=== PATIENT | male | born 2000 | race Caucasian/White ===

== ENCOUNTER 2024-02-01 20:12 | Observation (INO) ==
--- NOTE | 2024-02-01 21:05 | Emergency Department Note ---
Impression & Plan Fever, Asplenia after surgical procedure, COVID-19 ED Provider Note NAME: NATHAN CAAL AGE: 23 SEX: M : 2000 ARRIVES VIA: Walk-In INFORMANT: Patient, ED PROVIDER(S): Chuck Davila DO CHIEF COMPLAINT: Fever HPI: The patient is a 23-year-old male who is a college student who presented to the emergency department for an evaluation of fever. He noticed a low-grade fever earlier today. He came the emergency department because of the symptoms. He is also noticed a headache as well as sore throat. He noticed mild rhinorrhea and a dry cough. He has had some loose stools over the last few days. He denies having any abdominal pain. He denies having any productive cough. He denies having any rashes. He denies have any exposure in the [place] or any recent tick bites. ROS: See above HPI for pertinent positives & negatives. A total of 10 systems reviewed and were otherwise negative. PAST MEDICAL HISTORY: See Below PAST SURGICAL HISTORY: See Below FAMILY HISTORY: See Below SOCIAL HISTORY: See Below HOME MEDICATIONS: See Below ALLERGIES: See Below VITALS: See Below PHYSICAL EXAMINATION: GENERAL: Patient is awake alert in no acute distress patient is resting comfortably and showing no signs of anxiety EYES: The conjunctivae are clear. The pupils are round and reactive. EARS, NOSE, MOUTH AND THROAT: The nose is without any evidence of any deformity. Mucous membranes are moist. There was erythema noted in the posterior oropharynx. There was no significant exudate. NECK: The neck is nontender and supple. RESPIRATORY: Normal respiratory effort is noted there is no evidence of wheezing rhonchi or rales CARDIOVASCULAR: Regular rate and rhythm noted there no murmurs rubs or gallops normal S1 normal S2. GASTROINTESTINAL: The abdomen is soft. Abdomen is nontender. MUSCULOSKELETAL/EXTREMITIES: There is no evidence of gross deformity full range of motion is noted in the hips and shoulders. SKIN: There is no obvious evidence of any rash. There are no petechiae, pallor or cyanosis noted. NEUROLOGIC: Patient is awake alert and oriented x3 MEDICAL DECISION MAKING: The patient is a 23-year-old male who presented to the emergency department for fever. The patient was concerned because he has a history of spleen removal. The patient does take antibiotics prophylactically. He noticed a fever today with other symptoms including headache and congestion. I discussed the patient's laboratory and radiographic studies with him. He does appear to have a positive COVID swab which I do feel likely explains his symptoms but he also has a very elevated white blood cell count. Because of this I discussed his condition with the on-call [facility] hospitalist. Given the risk for overwhelming sepsis they felt to be better to observe the patient and continue with IV antibiotics. Triage Nursing notes reviewed. Prior medical records reviewed Vital Signs: reviewed and remarkable for no significant abnormalities Differential diagnosis: Viral syndrome, otitis, pharyngitis, pneumonia, influenza, meningitis, urinary tract infection, sepsis, bacteremia, as well as other pathologies. ER treatment provided: See below Diagnostics interpreted by me: ECG: none Cardiac Monitoring: An order was placed for continuous cardiac monitoring. The monitor shows a rate of 77 bpm with sinus rhythm. Laboratory studies: As stated above and show below. Imaging studies: See below. Radiographic imaging was reviewed by myself Consultation(s): I natalia this case with Dr. Soto [facility]. Past Med/Surg History Problem List (Updated 02/01/24 @ 23:53 by Chuck Davila DO) COVID-19 (Acute) Asplenia after surgical procedure (Acute) Fever (Acute) Spherocytosis (Chronic) Surgical History H/O splenectomy History of foot surgery Social History Smoking Status: Never smoker Preferred Language: Micronesian Current Living Situation Comment: [employer] student in dorm, from [place] Feels Safe at Home: Yes Allergies Allergies Allergy/AdvReac Type Severity Reaction Status Date / Time No Known Allergies Allergy Unverified 07/20/21 16:23 Home Meds Home Medications Medication Instructions Recorded Confirmed ibuprofen 200 mg tablet 200 mg PO UD PRN Fever Or Pain 02/01/24 02/01/24 Results & Data (ED) Vital Signs Vital Signs - 24 hr 02/01/24 20:29 02/01/24 22:39 02/01/24 23:21 Temperature 37.4 C Temperature Source Oral Pulse Rate 95 H Pulse Rate [Apical] 88 77 Respiratory Rate 16 19 Respiratory Effort / Characteristics Non-Labored Spontaneous Respiratory Depth Normal Respiratory Pattern Regular Blood Pressure 126/71 Blood Pressure [Right Arm] 126/68 127/79 Blood Pressure Mean 89 Blood Pressure Mean [Right Arm] 87 95 Pulse Oximetry 97 99 98 Oxygen Delivery Method Room Air Room Air Sepsis Recent Fever Within 48 Hours Yes Sepsis New/Unexplained Change in Mental Status No Sepsis Action Taken by Nursing No Action Required 02/01/24 23:21 Temperature Temperature Source Pulse Rate 77 Pulse Rate [Apical] Respiratory Rate Respiratory Effort / Characteristics Respiratory Depth Respiratory Pattern Blood Pressure Blood Pressure [Right Arm] Blood Pressure Mean Blood Pressure Mean [Right Arm] Pulse Oximetry Oxygen Delivery Method Sepsis Recent Fever Within 48 Hours Sepsis New/Unexplained Change in Mental Status Sepsis Action Taken by Correction Medications Current Medication List: was personally reviewed by me Laboratory Data Attestation: I reviewed the patient's lab results. 02/01/24 21:19 02/01/24 21:19 Lab Results 02/01/24 02/01/24 02/01/24 Range/Units 20:52 21:19 21:26 WBC 17.09 H (4.8-10.8) K/ul RBC 5.53 (4.70-6.10) M/uL Hgb 17.2 (14.0-18.0) g/dl Hct 47.8 (42.0-52.0) % MCV 86.4 (80.0-100.0) fL MCH 31.1 (25.0-34.0) pg MCHC 36.0 (32.0-36.0) g/dL RDW Std Deviation 41.6 (36.4-46.3) fL RDW Coeff of Delmer 13.4 (11.5-14.5) % Plt Count 379 (130-400) K/uL MPV 9.3 L (9.4-12.4) fL Immature Gran % (Auto) 0.4 % Neut % (Auto) 84.5 % Lymph % (Auto) 4.6 % Henry % (Auto) 6.8 % Eos % (Auto) 3.2 % Baso % (Auto) 0.5 % Neut # (Auto) 14.46 H (1.40-6.50) K/uL Lymph # (Auto) 0.78 L (1.20-3.40) K/uL Henry # (Auto) 1.16 H (0.11-0.59) K/uL Eos # (Auto) 0.55 H (0.00-0.50) K/uL Baso # (Auto) 0.08 (0.00-0.20) K/uL Immature Gran # (Auto) 0.06 (0.01-0.20) K/uL Echinocytes 1+ Sodium 139 (136-145) mmol/L Potassium 4.0 (3.5-5.1) mmol/L Chloride 105 (98-107) mmol/L Carbon Dioxide 27 (21-32) mmol/L Anion Gap 7 (3-11) BUN 20 (6-23) mg/dl Creatinine 1.05 (0.6-1.4) mg/dl Est Cr Clr Drug Dosing 118.5 ml/min Est GFR ( Amer) 117.0 ml/min Est GFR (Non-Af Amer) 101.0 ml/min BUN/Creatinine Ratio 19.0 (10-20) Glucose 111 H (70-99(Fasting)) mg/dl Lactate 1.0 (0.4-2.0) mmol/L Calcium 9.4 (8.6-10.3) mg/dl Total Bilirubin 0.9 (0.2-1.0) mg/dl AST 18 (13-39) U/L ALT 17 (7-52) U/L Alkaline Phosphatase 51 (34-104) U/L C-Reactive Protein 0.60 H (0-0.5) mg/dl Total Protein 7.2 (6.0-8.3) gm/dl Albumin 4.6 (3.4-5.0) gm/dl Globulin 2.6 (2.5-4.0) gm/dl Albumin/Globulin Ratio 1.8 (0.9-2) Procalcitonin < 0.02 (0-0.5) ng/ml Urine Color Urine Appearance (Clear) Urine pH (4.5-7.5) Ur Specific [place] (1.000-1.030) Urine Protein (Negative) Urine Glucose (UA) (Negative) Urine Ketones (Negative) Urine Blood (Negative) Urine Nitrite (Negative) Urine Bilirubin (Negative) Urine Urobilinogen (Negative) Ur Leukocyte Esterase (Negative) Urine WBC (Auto) (0-5) /hpf Urine RBC (Auto) (0-2) /hpf U Hyaline Cast (Auto) (0-2) /lpf U Epithel Cells (Auto) (0-2) /hpf Urine Bacteria (Auto) (None Seen) Adenovirus (PCR) Not Detected (NotDetected) B. pertussis DNA (PCR) Not Detected (NotDetected) B.parapertussis DNA PCR Not Detected (NotDetected) C. pneumoniae DNA (PCR) Not Detected (NotDetected) Coronavirus OC43 (PCR) Not Detected (NotDetected) Coronavirus HKU1 (PCR) Not Detected (NotDetected) Coronavirus 229E (PCR) Not Detected (NotDetected) SARS-CoV-2 (PCR) DETECTED A (NotDetected) Coronavirus NL63 (PCR) Not Detected (NotDetected) Monoscreen Negative (Negative) Human Metapneumovir PCR Not Detected (NotDetected) Influenza Type A (PCR) Not Detected (NotDetected) Influenza Type B (PCR) Not Detected (NotDetected) M. pneumoniae (PCR) Not Detected (NotDetected) Parainfluenza 1 (PCR) Not Detected (NotDetected) Parainfluenza 2 (PCR) Not Detected (NotDetected) Parainfluenza 3 (PCR) Not Detected (NotDetected) Parainfluenza 4 (PCR) Not Detected (NotDetected) RSV (PCR) Not Detected (NotDetected) Entero/Rhino (PCR) Not Detected (NotDetected) Group A Strep (PCR) NOT DETECTED (NotDetected) 02/01/24 Range/Units 23:19 WBC (4.8-10.8) K/ul RBC (4.70-6.10) M/uL Hgb (14.0-18.0) g/dl Hct (42.0-52.0) % MCV (80.0-100.0) fL MCH (25.0-34.0) pg MCHC (32.0-36.0) g/dL RDW Std Deviation (36.4-46.3) fL RDW Coeff of Delmer (11.5-14.5) % Plt Count (130-400) K/uL MPV (9.4-12.4) fL Immature Gran % (Auto) % Neut % (Auto) % Lymph % (Auto) % Henry % (Auto) % Eos % (Auto) % Baso % (Auto) % Neut # (Auto) (1.40-6.50) K/uL Lymph # (Auto) (1.20-3.40) K/uL Henry # (Auto) (0.11-0.59) K/uL Eos # (Auto) (0.00-0.50) K/uL Baso # (Auto) (0.00-0.20) K/uL Immature Gran # (Auto) (0.01-0.20) K/uL Echinocytes Sodium (136-145) mmol/L Potassium (3.5-5.1) mmol/L Chloride (98-107) mmol/L Carbon Dioxide (21-32) mmol/L Anion Gap (3-11) BUN (6-23) mg/dl Creatinine (0.6-1.4) mg/dl Est Cr Clr Drug Dosing ml/min Est GFR ( Amer) ml/min Est GFR (Non-Af Amer) ml/min BUN/Creatinine Ratio (10-20) Glucose (70-99(Fasting)) mg/dl Lactate (0.4-2.0) mmol/L Calcium (8.6-10.3) mg/dl Total Bilirubin (0.2-1.0) mg/dl AST (13-39) U/L ALT (7-52) U/L Alkaline Phosphatase (34-104) U/L C-Reactive Protein (0-0.5) mg/dl Total Protein (6.0-8.3) gm/dl Albumin (3.4-5.0) gm/dl Globulin (2.5-4.0) gm/dl Albumin/Globulin Ratio (0.9-2) Procalcitonin (0-0.5) ng/ml Urine Color Yellow Urine Appearance Clear (Clear) Urine pH 6.0 (4.5-7.5) Ur Specific [place] 1.031 H (1.000-1.030) Urine Protein Trace H (Negative) Urine Glucose (UA) Negative (Negative) Urine Ketones Negative (Negative) Urine Blood Negative (Negative) Urine Nitrite Negative (Negative) Urine Bilirubin Negative (Negative) Urine Urobilinogen Negative (Negative) Ur Leukocyte Esterase Negative (Negative) Urine WBC (Auto) 0-5 (0-5) /hpf Urine RBC (Auto) 0-2 (0-2) /hpf U Hyaline Cast (Auto) 0-2 (0-2) /lpf U Epithel Cells (Auto) 0-2 (0-2) /hpf Urine Bacteria (Auto) None Seen (None Seen) Adenovirus (PCR) (NotDetected) B. pertussis DNA (PCR) (NotDetected) B.parapertussis DNA PCR (NotDetected) C. pneumoniae DNA (PCR) (NotDetected) Coronavirus OC43 (PCR) (NotDetected) Coronavirus HKU1 (PCR) (NotDetected) Coronavirus 229E (PCR) (NotDetected) SARS-CoV-2 (PCR) (NotDetected) Coronavirus NL63 (PCR) (NotDetected) Monoscreen (Negative) Human Metapneumovir PCR (NotDetected) Influenza Type A (PCR) (NotDetected) Influenza Type B (PCR) (NotDetected) M. pneumoniae (PCR) (NotDetected) Parainfluenza 1 (PCR) (NotDetected) Parainfluenza 2 (PCR) (NotDetected) Parainfluenza 3 (PCR) (NotDetected) Parainfluenza 4 (PCR) (NotDetected) RSV (PCR) (NotDetected) Entero/Rhino (PCR) (NotDetected) Group A Strep (PCR) (NotDetected) Administered Medications Discontinued Medications Sodium Chloride (Nss) 1,000 mls @ 999 mls/hr IV .Q1H1M STA Stop: 02/01/24 21:56 Last Infusion: 02/01/24 22:24 Dose: Infused Documented By: [facility] Admin: 02/01/24 21:20 Dose: 999 mls/hr Documented By: [facility] Imaging Data Attestation: I personally reviewed and interpreted this imaging study as follows: My Impression: 1 view chest x-ray was obtained in the emergency department. My interpretation is no free air or definite infiltrate, final report pending. Discharge Plan Visit Data Chief Complaint: Fever Stated Complaint: FEVER ED Provider: Chuck Davila Discharge Problem: Fever, Asplenia after surgical procedure, COVID-19 Patient Disposition: Being Evaluated by Hospitalist Forms Stand Alone Forms: [facility] Prescriptions Prescriptions: No Action ibuprofen 200 mg Tablet 200 mg PO UD PRN (Reason: Fever Or Pain) Referrals Referrals: [facility] [Primary Care Provider] - Discharge Problem: Fever Qualifiers: Fever type: unspecified Qualified Code(s): R50.9 - Fever, unspecified
[2024-02-01] MEDS: SODIUM CHLORIDE 0.9% 1,000 ML IV STA (21:20)
[2024-02-01 21:53] LABS: Albumin Globulin Ratio 1.8 (0.9-2); Albumin Level 4.6 gm/dl (3.4-5.0); Bilirubin,Total 0.9 mg/dl (0.2-1.0); C Reactive Protein 0.6 mg/dl (0-0.5); Calcium 9.4 mg/dl (8.6-10.3); Creatinine Clr Calc Pharmacy 118.5 ml/min; Globulin 2.6 gm/dl (2.5-4.0); Total Protein 7.2 gm/dl (6.0-8.3)
[2024-02-01 22:03] LABS: Adenovirus PCR Not Detected (NotDetected); Bordetella parapertussis PCR Not Detected (NotDetected); Bordetella pertussis PCR Not Detected (NotDetected); Chlamydia pneumoniae PCR Not Detected (NotDetected); Coronavirus 229E PCR Not Detected (NotDetected); Coronavirus CoV-2 (COVID19)PCR DETECTED (NotDetected); Coronavirus HKU1 PCR Not Detected (NotDetected); Coronavirus NL63 PCR Not Detected (NotDetected); Coronavirus OC43PCR Not Detected (NotDetected); Human Metapneumovirus PCR Not Detected (NotDetected); Influenza A PCR Not Detected (NotDetected); Influenza B PCR Not Detected (NotDetected); Mycoplasma pneumoniae PCR Not Detected (NotDetected); Parainfluenza Virus 1 PCR Not Detected (NotDetected); Parainfluenza Virus 2 PCR Not Detected (NotDetected); Parainfluenza Virus 3 PCR Not Detected (NotDetected); Parainfluenza Virus 4 PCR Not Detected (NotDetected); Respiratory Syncytial VirusPCR Not Detected (NotDetected); Rhinovirus/Enterovirus PCR Not Detected (NotDetected)
[2024-02-01 22:29] LABS: Hematocrit (blood only) 47.8 % (42.0-52.0); Hemoglobin 17.2 g/dl (14.0-18.0); Mean Corpuscular Hemoglobin 31.1 pg (25.0-34.0); Mean Corpuscular Volume 86.4 fL (80.0-100.0); Mean Platelet Volume 9.3 fL (9.4-12.4); Platelet Count 379 K/uL (130-400); RDW Coefficient of Variation 13.4 % (11.5-14.5); RDW Standard Deviation 41.6 fL (36.4-46.3); Red Blood Count 5.53 M/uL (4.70-6.10); White Blood Count 17.09 K/ul (4.8-10.8)
[2024-02-01 22:30] LABS: Basophils # (auto) 0.08 K/uL (0.00-0.20); Basophils % (auto) 0.5 %; Echinocytes 1+; Eosinophils # (auto) 0.55 K/uL (0.00-0.50); Eosinophils % (auto) 3.2 %; Immature Granulocytes # (auto) 0.06 K/uL (0.01-0.20); Immature Granulocytes % (auto) 0.4 %; Lymphocytes # (auto) 0.78 K/uL (1.20-3.40); Lymphocytes % (auto) 4.6 %; Monocytes # (auto) 1.16 K/uL (0.11-0.59); Monocytes % (auto) 6.8 %; Neutrophils # (auto) 14.46 K/uL (1.40-6.50); Neutrophils % (auto) 84.5 %
[2024-02-01 23:43] LABS: Appearance Urine Clear (Clear); Bacteria Urine Automated None Seen (None Seen); Bilirubin Urine Negative (Negative); Blood Urine Negative (Negative); Cast Urine Automated 0-2 /lpf (0-2); Color Urine Yellow; Epithelial Cell Urine Auto 0-2 /hpf (0-2); Glucose Urine UA Negative (Negative); Ketones Urine Negative (Negative); Leukocyte Esterase Urine Negative (Negative); Nitrite Urine Negative (Negative); Protein Urine Trace (Negative); RBC Urine Automated 0-2 /hpf (0-2); Specific Gravity Urine 1.031 (1.000-1.030); Urobilinogen Urine Negative (Negative); WBC Urine Automated 0-5 /hpf (0-5)
[2024-02-01] MEDS ORDERED: VANCOMYCIN CONSULT ACTIVE PRN (23:47)
--- NOTE | 2024-02-01 23:48 | History & Physical Report ---
Date of Service February 01, 2024 Assessment & Plan (1) Asplenia after surgical procedure: Plan: -Patient reports that he had spleen removed approximately a month and a half ago. Reports that he has been getting all his vaccinations but is unable to tell which ones he is currently on. -Patient reported feeling feverish and had a elevated temperature of 99 though, has temperature 37.4 here in the hospital. -Patient did have a leukocytosis which is unexplained in the setting of a COVID infection. -Given that patient is high risk for infection after splenectomy and having unexplained leukocytosis will admit and start on vancomycin and ceftriaxone. -Blood cultures pending. (2) COVID-19: Plan: -Patient is COVID-positive. Mild symptoms. -Supportive care. Isolation precautions in place. -Will hold off on steroids at this time given mild symptoms. (3) Fever: Plan: -Reported feeling feverish though never had a true fever at home or in the hospital. (4) Leukocytosis: Plan: -Leukocytosis is unexplained by COVID-19 infection. -Started on vancomycin and ceftriaxone due to recent asplenia. (5) Spherocytosis: Plan: -Noted. History of Present Illness Chief Complaint: Fever, leukocytosis in asplenic patient Primary Care Provider: [facility] Patient is a 23-year-old male with past medical history of spherocytosis with recent asplenia procedure. Patient is currently a student at [employer] and from [place]. Patient was brought into the ED for fever. Patient states that he has been having some mild rhinorrhea and dry cough as well as sore throat. Has had some loose stools over the past few days but denies any abdominal pain. Patient recently had his spleen removed approximately a month and a half ago. 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 Patient states that he has been vaccinated prior and following spleen removal though is unsure exactly which vaccines he has gotten and if he is due for more. Patient has been having an elevated temperature around 99. He was told to go to the emergency room if he ever gets a fever due to his history of asplenia. In the ED: Patient was found to be COVID-positive with a leukocytosis. Increase in neutrophil/lymphocyte ratio. Slightly elevated CRP of 0.6, Pro-Blayne negative. UA negative. Allergies Allergy/AdvReac Type Severity Reaction Status Date / Time No Known Allergies Allergy Unverified 07/20/21 16:23 Home Medications Medication Instructions Recorded Confirmed Type ibuprofen 200 mg tablet 200 mg PO UD PRN Fever Or Pain 02/01/24 02/01/24 History Past Med/Surg History Problem List (Updated 02/02/24 @ 01:55 by Zion Ball DO) Leukocytosis COVID-19 (Acute) Asplenia after surgical procedure (Acute) Fever (Acute) Spherocytosis (Chronic) Surgical History H/O splenectomy History of foot surgery Social History Smoking Status: Never smoker Hx Alcohol Use: Yes Alcohol type: beer and hard liquor Hx Substance Use: No Preferred Language: Serbian Communication Ability: Effective 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 Beliefs That Will Affect Care: None Current Living Situation: Alone Current Living Situation Comment: [employer] student in dorm, from [place] Feels Safe at Home: Yes Safety Concerns: Feels Safe At This Time Review of Systems Review of Systems: All systems reviewed & are unremarkable except as noted in Subjective Physical Exam Physical Exam: Constitutional: well-appearing, no acute distress HEENT: NCAT, no conjunctival injection CV: regular rhythm, no murmur appreciated, extremities well-perfused, no LE edema Resp: CTABL, no wheezes/rales/rhonchi appreciated, no increased work of breathing GI: soft, nondistended, nontender, BS normoactive MSK: no gross deformities appreciated Skin: warm, dry, no rash appreciated Neuro: alert, oriented, no focal neurologic deficit appreciated Results & Data Results & Data Vital Signs (Past 12 Hours) Vital Signs Temp Pulse Pulse Resp BP BP Pulse Ox 02/01/24 23:21 77 02/01/24 23:21 77 19 127/79 98 02/01/24 22:39 88 16 126/68 99 02/01/24 20:29 37.4 C 95 H 126/71 97 O2 Del Method 02/01/24 23:21 02/01/24 23:21 02/01/24 22:39 Room Air 02/01/24 20:29 Room Air Supervising Physician Co-Signing Physician Notes Patient discussed with Dr. Ball and I agree with the assessment and plan as above Resident Activity Tracking Resident Involvement: Resident Care Provided Care Provided: Adult Hospital Medicine (3) Fever Fever type: unspecified Qualified Code(s): R50.9 - Fever, unspecified
[2024-02-02] MEDS: cefTRIAXone SODIUM 2,000 MG/50 ML BAG IV STA (00:05)
[2024-02-02] MEDS: VANCOMYCIN HCL 1,500 MG in SODIUM CHLORIDE 0.9% 500 ML IV ONE (00:06)
[2024-02-02] MEDS ORDERED: MELATONIN 3 MG TAB PO PRN (03:06)
[2024-02-02] MEDS ORDERED: ONDANSETRON INJ 2 MG/ML 2 ML VIAL IV PRN (03:06)
[2024-02-02] MEDS ORDERED: ACETAMINOPHEN 325 MG TAB PO PRN (03:06)
[2024-02-02] MEDS ORDERED: POLYETHYLENE (MIRALAX) 17 GM PACK PO PRN (03:06)
[2024-02-02] MEDS ORDERED: Nursing to Pharmacy Communication SCH (03:45)
--- NOTE | 2024-02-02 06:27 | Billing Data ---
Date of Service February 01, 2024 Coding Level of Care Code 32252 INT INP/OBS CARE
--- NOTE | 2024-02-02 07:04 | XRay Report ---
XR chest 1V portable CLINICAL HISTORY: Fever. COMPARISON STUDY: No previous studies for comparison. FINDINGS: Lung volumes are normal. Lungs are clear. There is no pneumothorax or pleural effusion. Car diac size is normal. Mediastinal contours are normal. There is no evidence for pulmonary edema. IMPRESSION: No acute cardiopulmonary findings. ACT 112: Negative or not required by law. Electronically signed by: Jorge Luis Davis M.D. 02/02/2024 7:02 AM
[2024-02-02 07:05] LABS: Howell-Jolly Bodies Occasional; Pappenheimer Bodies 1+
[2024-02-02 07:21] LABS: Basophils # (auto) 0.08 K/uL (0.00-0.20); Basophils % (auto) 0.6 %; Eosinophils # (auto) 0.39 K/uL (0.00-0.50); Eosinophils % (auto) 2.9 %; Hemoglobin 16.4 g/dl (14.0-18.0); Immature Granulocytes # (auto) 0.04 K/uL (0.01-0.20); Immature Granulocytes % (auto) 0.3 %; Lymphocytes # (auto) 0.65 K/uL (1.20-3.40); Lymphocytes % (auto) 4.9 %; Mean Corpuscular Hemoglobin 30.3 pg (25.0-34.0); Mean Corpuscular Hgb Conc 34.9 g/dL (32.0-36.0); Mean Corpuscular Volume 86.9 fL (80.0-100.0); Mean Platelet Volume 9.4 fL (9.4-12.4); Monocytes # (auto) 1.31 K/uL (0.11-0.59); Monocytes % (auto) 9.8 %; Neutrophils % (auto) 81.5 %; Platelet Count 369 K/uL (130-400); RDW Coefficient of Variation 13.3 % (11.5-14.5); RDW Standard Deviation 41.8 fL (36.4-46.3); Red Blood Count 5.41 M/uL (4.70-6.10); White Blood Count 13.37 K/ul (4.8-10.8)
[2024-02-02 07:37] LABS: Albumin Globulin Ratio 1.7 (0.9-2); Albumin Level 4.3 gm/dl (3.4-5.0); BUN Creatinine Ratio 13.5 (10-20); C Reactive Protein 0.99 mg/dl (0-0.5); Creatinine Clr Calc Pharmacy 129.6 ml/min; Est GFR (African American) 130.4 ml/min; Est GFR (Non-African American) 112.5 ml/min; Globulin 2.6 gm/dl (2.5-4.0); Potassium 3.9 mmol/L (3.5-5.1); Total Protein 6.9 gm/dl (6.0-8.3)
--- NOTE | 2024-02-02 07:45 | Hospitalist Progress Note ---
Date of Service February 02, 2024 Assessment & Plan (1) Asplenia after surgical procedure: Plan: -Patient reports that he had spleen removed approximately a month and a half ago. Reports that he has been getting all his vaccinations but is unable to tell which ones he is currently on. -Patient reported feeling feverish and had a elevated temperature of 99 though, has temperature 37.4 here in the hospital. -Given that patient is high risk for infection after splenectomy, started on vancomycin and ceftriaxone. -Blood cultures pending; plan to keep pt today so we can see 24 hour cultures, which will result tonight around 11 pm (2) COVID-19: Plan: -Patient is COVID-positive. Mild symptoms. -Supportive care. Isolation precautions in place. -Will hold off on steroids at this time given mild symptoms. (3) Fever: Plan: -Reported feeling feverish though never had a true fever at home or in the hospital. (4) Leukocytosis: Plan: -Leukocytosis may just be explained by COVID-19 infection. -Started on vancomycin and ceftriaxone due to recent asplenia with leukocytosis, will continue while culture pending (5) Spherocytosis: Plan: -Noted. Admission and Anticipated Discharge Date Admission Date: February 02, 2024 Supervising Physician Co-Signing Physician Notes ATTESTATION I also saw the patient and confirmed nolasco portions of the history and exam. I agree with the impression and plan in the resident documentation, and as summarized below. Feels like he has a cold. Remains afebrile. His only complaint is that of some upper respiratory congestion and mild achiness. EXAM Afebrile. Nontoxic. Ambulatory about the room. Able speak in full sentences without pause. Pulse regular upon our visit; mildly tachycardic upon vitals. Regular respirations, nonlabored. DATA Labs Improving white blood cell count, now at 13.37; Slight lymphopenia C-reactive protein slightly elevated 0.99 BMP is unremarkable Procalcitonin upon admission was less than 0.02. Imaging Chest x-ray showed no acute disease. Micro Blood culture pending IMPRESSION & PLAN COVID Asplenia Very mild symptoms related to the COVID, for which would usually be treated as an outpatient. Concern was raised given his asplenia. Overall, looks well all considered; do not suspect secondary bacterial infection but prudent to await at least 24-hour cultures before de-escalation. If he remains well today, afebrile overnight, could consider discharge in the morning with a 24-hour negative culture. May consider empiric outpatient antibiotics to guard against secondary infection, but will look at this again tomorrow. Additional per resident documentation Subjective Today, pt seen at bedside. He states he is feeling generally fine today, just feels like he has a typical cold. He states really he just has some nasal/sinus congestion, no chest pain, SOB, cough, nausea, or vomiting. He states he had a temp of 99.7 F yesterday and had been told with his asplenia to come to the hospital if he gets a fever of any kind. He states he had his spleen removed about a month and a half ago because they had been monitoring it yearly each summer with ultrasound due to his hereditary spherocytosis and it was noted to be pretty enlarged with masses that turned out to be calcifications. It was removed since it had gotten large and his doctors were concerned it could burst or an injury to it would be catastrophic. Had covid in the past which was mild as well. No symptoms other than the congestion. Review of Systems Review of Systems: Per HPI. Physical Exam Physical Exam: General:Alert and oriented, no acute distress, HEENT: Normocephalic, moist oral mucosa, Cardio: Regular rate and rhythm, no murmur, Resp:Lungs clear to auscultation b/l, no wheezes or rhonchi, GI: Soft and nontender, nondistended, bowel sounds active Skin: Warm, pink, dry, Results & Data Results & Data Vital Signs (Past 12 Hours) Vital Signs Temp Pulse Pulse Pulse Resp BP BP 02/02/24 03:00 02/02/24 03:00 36.8 C 73 14 135/84 02/02/24 02:45 98 H 13 02/02/24 02:33 78 18 02/02/24 02:30 137/77 02/02/24 02:21 77 16 02/02/24 02:15 73 21 02/02/24 02:00 138/85 02/02/24 01:51 79 25 H 02/02/24 01:42 79 24 02/02/24 01:36 77 23 02/02/24 01:24 77 24 02/02/24 01:03 72 21 02/02/24 01:00 125/80 02/02/24 01:00 125/80 02/02/24 01:00 36.7 C 70 20 125/80 02/02/24 00:57 81 24 02/02/24 00:51 76 23 02/02/24 00:45 77 23 02/02/24 00:30 141/81 H 02/02/24 00:18 72 23 02/02/24 00:15 68 21 02/02/24 00:03 78 23 02/02/24 00:00 137/88 02/02/24 00:00 137/88 02/01/24 23:51 81 24 02/01/24 23:42 79 18 02/01/24 23:27 88 13 02/01/24 23:21 77 02/01/24 23:21 77 19 127/79 02/01/24 23:18 127/79 02/01/24 22:39 88 16 126/68 02/01/24 20:29 37.4 C 95 H 126/71 Pulse Ox O2 Del Method 02/02/24 03:00 Room Air 02/02/24 03:00 98 Room Air 02/02/24 02:45 97 02/02/24 02:33 100 02/02/24 02:30 02/02/24 02:21 97 02/02/24 02:15 99 02/02/24 02:00 02/02/24 01:51 99 02/02/24 01:42 99 02/02/24 01:36 99 02/02/24 01:24 100 02/02/24 01:03 98 02/02/24 01:00 02/02/24 01:00 02/02/24 01:00 98 Room Air 02/02/24 00:57 97 02/02/24 00:51 97 02/02/24 00:45 96 02/02/24 00:30 02/02/24 00:18 96 02/02/24 00:15 97 02/02/24 00:03 97 02/02/24 00:00 02/02/24 00:00 02/01/24 23:51 98 02/01/24 23:42 98 02/01/24 23:27 97 02/01/24 23:21 02/01/24 23:21 98 02/01/24 23:18 02/01/24 22:39 99 Room Air 02/01/24 20:29 97 Room Air Resident Activity Tracking Resident Involvement: Resident Care Provided Care Provided: Adult Hospital Medicine (3) Fever Fever type: unspecified Qualified Code(s): R50.9 - Fever, unspecified
--- NOTE | 2024-02-02 08:55 | Pharmacy Report ---
Pharmacy PK ABX Note - Date of Service February 02, 2024 - Assessment and Plan Assessment 23 year old M started on vancomycin and rocephin empirically for fever associated with COVID infection. PMHx significant for splenectomy about ~1-2 months ago. Patient presenting with leukocytosis and fever. Blood cultures pending. Plan Vancomycin * Loading dose: 1500 mg IV x 1 * Maintenance dose: 1000 mg IV every 8 hours * Regimen is predicted to achieve target AUC/JAYCE of 400-600 mg/L.hr * Random level ordered for tomorrow AM prior to 0800 dose to assess current regimen Pharmacy will continue to follow and will adjust dose/frequency as necessary. Thank you. Pharmacy has transitioned to AUC monitoring for vancomycin. AUC/JAYCE is the preferred PK/PD target and is associated with decreased risk of nephrotoxicity compared to traditional trough targets.
[2024-02-02] MEDS: VANCOMYCIN HCL 1,000 MG in SODIUM CHLORIDE 0.9% 250 ML IV SCH (09:33)
[2024-02-02] MEDS: cefTRIAXone SODIUM 2,000 MG/50 ML BAG IV SCH (21:20)
[2024-02-03 07:39] LABS: Hematocrit (blood only) 50.1 % (42.0-52.0); Hemoglobin 17.5 g/dl (14.0-18.0); Mean Corpuscular Hemoglobin 30.4 pg (25.0-34.0); Mean Corpuscular Hgb Conc 34.9 g/dL (32.0-36.0); Mean Corpuscular Volume 87.1 fL (80.0-100.0); Platelet Count 360 K/uL (130-400); RDW Coefficient of Variation 13.2 % (11.5-14.5); RDW Standard Deviation 42.1 fL (36.4-46.3); Red Blood Count 5.75 M/uL (4.70-6.10); White Blood Count 11.32 K/ul (4.8-10.8)
[2024-02-03 07:45] LABS: BUN Creatinine Ratio 9.2 (10-20); Calcium 9.4 mg/dl (8.6-10.3); Creatinine Clr Calc Pharmacy 114.2 ml/min; Est GFR (African American) 111.9 ml/min; Est GFR (Non-African American) 96.5 ml/min; Potassium 4.3 mmol/L (3.5-5.1)
[2024-02-03 08:03] LABS: Basophils % (auto) 0.9 %; Eosinophils # (auto) 0.22 K/uL (0.00-0.50); Eosinophils % (auto) 1.9 %; Howell-Jolly Bodies 1+; Immature Granulocytes # (auto) 0.02 K/uL (0.01-0.20); Immature Granulocytes % (auto) 0.2 %; Lymphocytes # (auto) 1.93 K/uL (1.20-3.40); Monocytes # (auto) 1.42 K/uL (0.11-0.59); Monocytes % (auto) 12.5 %; Neutrophils # (auto) 7.63 K/uL (1.40-6.50); Neutrophils % (auto) 67.5 %
[2024-02-03 08:10] VITALS: BP 137/78; PULSE 87; RESP 16; TEMP 98.8; O2SAT 97
[2024-02-03] MEDS: VANCOMYCIN LEVEL ONE (08:12)
--- NOTE | 2024-02-03 11:56 | Discharge Summary ---
Date of Service February 03, 2024 Admission HPI Per Admitting Provider Patient is a 23-year-old male with past medical history of spherocytosis with recent asplenia procedure. Patient is currently a student at [employer] and from [place]. Patient was brought into the ED for fever. Patient states that he has been having some mild rhinorrhea and dry cough as well as sore throat. Has had some loose stools over the past few days but denies any abdominal pain. Patient recently had his spleen removed approximately a month and a half ago. 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 Patient states that he has been vaccinated prior and following spleen removal though is unsure exactly which vaccines he has gotten and if he is due for more. Patient has been having an elevated temperature around 99. He was told to go to the emergency room if he ever gets a fever due to his history of asplenia. In the ED: Patient was found to be COVID-positive with a leukocytosis. Increase in neutrophil/lymphocyte ratio. Slightly elevated CRP of 0.6, Pro-Blayne negative. UA negative. Admission Exam Per Admitting Provider Constitutional: well-appearing, no acute distress HEENT: NCAT, no conjunctival injection CV: regular rhythm, no murmur appreciated, extremities well-perfused, no LE edema Resp: CTABL, no wheezes/rales/rhonchi appreciated, no increased work of breathing GI: soft, nondistended, nontender, BS normoactive MSK: no gross deformities appreciated Skin: warm, dry, no rash appreciated Neuro: alert, oriented, no focal neurologic deficit appreciated Principal Diagnosis COVID-19 in asplenic patient Discharge Exam General:Alert and oriented, no acute distress, HEENT: Normocephalic, moist oral mucosa, nasal congestion noted Cardio: Regular rate and rhythm, no murmur, Resp:Lungs clear to auscultation b/l, no wheezes or rhonchi, Skin: Warm, pink, dry, Discharge Data Allergies Allergy/AdvReac Type Severity Reaction Status Date / Time No Known Allergies Allergy Unverified 07/20/21 16:23 Consultations 02/01/24 23:47 ED Decision to Admit Stat Hospital Course (1) Asplenia after surgical procedure: - Patient reports that he had spleen removed approximately a month and a half ago due to hereditary spherocytosis and splenic enlargement - Reports that he has been getting all his vaccinations but is unable to tell which ones he is currently on. - Patient reported feeling feverish and had a elevated temperature of 99 at home, no documented fever since admission - Given that patient is high risk for infection after splenectomy, started on vancomycin and ceftriaxone, will transition to augmentin for 5 days on discharge for 7 day total AB course - Blood cultures pending; negative at 24 hours (2) COVID-19: -Patient is COVID-positive. Mild symptoms. -held off on steroids given mild symptoms. (3) Fever: -Reported feeling feverish though never had a true fever at home or in the [facility] since admission (4) Leukocytosis: -Leukocytosis may just be explained by COVID-19 infection. -Started on vancomycin and ceftriaxone due to recent asplenia with leukocytosis, see above for antibiotic plan on discharge (5) Spherocytosis: Total Time Total Time Spent Total Time Spent (In Minutes): 20 minutes Discharge Plan Discharge Items Patient Disposition: Home - Self-Care Reason For Visit: FEVER, LEUKOCYTOSIS IN ASPLENIA Discharge Diagnosis: COVID-19 infection in an asplenic patient Activity: Resume your previous activity Non-emergency contact: Primary Care Provider Call non-emergency contact if: you have any medication questions, your symptoms worsen and your temperature is above 101.5 Follow-up/Referrals: [facility] [Primary Care Provider] - Diet: Regular Addtl Attending Provider Instructions: You were admitted to the hospital for a COVID-19 respiratory infection in the setting of someone without a spleen (what we call asplenia). Because you do not have a spleen, we get concerned with fevers of bacterial infections happening as you may be at an increase risk for infections without this organ to help filter your blood. Thankfully, you have been without a fever throughout your stay in the hospital and your symptoms are consistent with having COVID-19 moreso than anything else. Additionally, your blood culture result has been negative so far. As we discussed, we will continue to watch for the culture tonight and if negative at 48 hours, you fairly definitively do not have any infection in your blood. If it turns positive, we will call you to let you know. We will, however, send for a few days of an antibiotic as well for you to take the next few days just to be extra safe. The antibiotic we will send for you is called Augmentin 875-125 taken twice daily, morning and evening for 5 days. Your next dose of this medication will be tonight. Please take this medication until you run out, do not stop early. In terms of the COVID-19 infection, the best treatment is rest and hydration. Aim for at least 60-80 ounces of noncaffeinated fluids daily, some with electrolytes. You can use [id number] cough and cold medicines for any bothersome symptoms. You can expect to have symptoms this week and into next week, but they should not worsen past today or tomorrow and you should not develop fevers. Please plan to follow-up with your primary care doctor this week by Thursday or latest Thursday next week. You will have to call to make this appointment, and just let them know you were in the hospital. Pending Studies at Discharge: No Stand-Alone Forms: [facility], Smoking Cessation Medications and DC Order Prescriptions: New amoxicillin-pot clavulanate 875-125 mg tablet 1 tab PO BID 5 Days Qty: 10 0RF Continued ibuprofen 200 mg Tablet 200 mg PO UD PRN (Reason: Fever Or Pain) Discharge Orders: Discharge Order (Routine); Ordered 02/03/24 Ordered By: Dee Garsia Admission Data Admit Date/Time: 02/02/24 00:15 Attending Provider: Abiodun Garcia Admit Provider: Zion Ball Primary Care Provider: [facility] Other Providers: Marlee Soto Other Interventions: Discharge Summary Assessment (RN) Last Done: 02/03/24 12:31 Supervising Physician Co-Signing Physician Notes ATTESTATION I also saw the patient and confirmed nolasco portions of the history and exam. I agree with the impression and plan in the resident documentation, and as summarized below. He feels generally well today. Minimal symptoms; maybe a little nasal stuffiness. He is looking forward to discharge. Denies cough, chest pain, shortness of breath. No headache. Fatigue is improved. Myalgias which he had yesterday, however mild, have resolved EXAM 137/78, 87, 16, 37.1, 97% room air Able speak in full sentences without pause. Heart regular rate and rhythm Lungs clear throughout with nonlabored respirations DATA Labs White blood cell count 11.32, hemoglobin 17.5, Sodium 137, potassium 4.3, BUN 10, creatinine 1.09 Micro Blood culture collected 02/01/2024 shows no growth at 24 hours IMPRESSION & PLAN COVID Asplenia Very mild symptoms related to the COVID, for which would usually be treated as an outpatient. Concern was raised given his asplenia. Overall, looks well all considered; do not suspect secondary bacterial infection; Blood cultures negative at 24 hours. I think discharge today is reasonable. Recommend Augmentin 875 mg p.o. twice daily for 5 more days, then return to his prophylactic amoxicillin dose. I'd be more concerned of a secondary infection in setting of COVID than COVID itself at this point, but given his clinical course and exam today, low suspicion. I will double check the 48-hour cultures to assure negative result. Reviewed signs and symptoms for which she would need to return to seek medical attention. Additional per resident documentation Resident Activity Tracking Resident Involvement: Resident Care Provided Care Provided: Adult Hospital Medicine
== END 2024-02-03 13:17 | disposition home or self-care (01) | DRG 178 ==
LOC: ED 20:12 → SUATTDRO 02-02 00:15 → INTOOBSV 02-02 00:15 → 3N 02-02 00:15